=== PATIENT | female | born 1990 | race Caucasian/White ===

== ENCOUNTER 2018-11-01 15:21 | Inpatient (IN) | payer OTHER ==
[2018-11-01 15:33] VITALS: BMI 26.3
--- NOTE | 2018-11-01 16:42 | PDOC ---
History of Present Illness - General Chief Complaint: Lightheaded Stated Complaint: LIGHT HEADED/ WEAKNESS Time Seen by Provider: 11/01/18 16:02 History Source: Patient, Parent(s) Exam Limitations: No Limitations - History of Present Illness Initial Comments: 11/01/18 16:28 Source: Patient and mother HPI: 28yo woman with scoliosis and multiple presentations for neuro symptoms ( 2011, 2014) presenting with new "painful numbess" and weak heaviness on the left side of her body since noon. She reports baseline headache, light headedness, inability to focus, and pain since a 2015 concussion. She also endorses anxiety and correlated palpitations and shortness of breath that resolve spontaneously over time. Denies any head trauma, no headache stronger than normal, no visual disturbances. No recent travel, no fevers / chills / nausea / vomiting / diarrhea / constipation. Endorses mild, non-radiating, non- exertional, gradual on-set, intermittent stabbing quality, chest pain over left chest. Grandmother of a stroke at 80, no coaguloathy in the family, no recent immobilization, no smoking, no estrogen containing -control. Of note , patient has a neuropsych appointment scheduled for 1 week from today. 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 Linda Harper Neuro: none Cards: none Neuropsych: Appointment 1 week NIH Stroke Scale - Last Known Well Date/Time & Onset Date Last Known Well: 11/01/18 Time Last Known Well: 12:00 - Initial Evaluation Level of consciousness: Alert Ask patient the month and their age: Answers both correctly Ask patient to open & close eyes; make fist and let go: Obeys both correctly Best gaze (horizontal eye movement): Normal Visual field testing: No visual field loss Facial paresis (Show teeth/raise eyebrows/close eyes tight): Normal symmetrical movement Motor Function: Left Arm: Normal Motor Function: Right Arm: Normal (extends arm 90 (or 45) degrees for 10 seconds without drift Motor Function: Left Leg: Normal (extends leg 30 degrees for 5 seconds without drift) Motor Function: Right Leg: Normal (extends leg 30 degrees for 5 seconds without drift) Limb Ataxia: No ataxia Sensory(Use pinprick test arms,legs,trunk,face/side to side): Mild to moderate decrease in sensation Best language (Describe picture, name items, read sentences): No Aphasia Dysarthria (read several words): Normal articulation Extinction and Inattention: No abnormality - Total Score NIH Stroke Scale Score: 1 Past History - Travel Traveled outside of the country in the last 30 days: No Close contact w/someone who was outside of country & ill: No - Past Medical History Allergies/Adverse Reactions: Allergies Allergy/AdvReac Type Severity Reaction Status Date / Time No Known Allergies Allergy Verified 11/29/15 00:03 Home Medications: Ambulatory Orders NK [No Known Home Medication] 11/29/15 COPD: No - Immunization History Immunization Up to Date: Yes - Suicide/Smoking/Psychosocial Hx Smoking Status: No Smoking History: Never smoked Have you smoked in the past 12 months: No Number of Cigarettes Smoked Daily: 0 Information on smoking cessation initiated: No Hx Alcohol Use: No Drug/Substance Use Hx: No Substance Use Type: None Review of Systems - Review of Systems Able to Perform ROS?: Yes Is the patient limited Liberian proficient: No Constitutional: No: Chills, Diaphoresis, Fever, Weakness HEENTM: No: Eye Pain, Blurred Vision, Tearing, Recent change in vision Cardiac (ROS): Yes: Chest Pain (see hpi), Palpitations (when anxious). No: Edema, Chest Tightness ABD/GI: No: Abdominal Distended, Abd. Pain w/ defecation, Constipated, Diarrhea , Nausea, Vomiting Musculoskeletal: Yes: Back Pain (receiving PT, scoliosis ) Neurological: Yes: Headache, Numbness, Weakness. No: Paresthesia Psychiatric: Yes: Anxiety All Other Systems: Reviewed and Negative *Physical Exam - Vital Signs Last Vital Signs Temp Pulse Resp BP Pulse Ox 98.7 F 115 H 20 134/81 97 11/01/18 15:27 11/01/18 15:27 11/01/18 15:27 11/01/18 15:27 11/01/18 15:27 - Physical Exam Comments: 11/01/18 17:01 Vitals notable for tachycardia to 115 Gen: wdwn woman, appears stated age, laying in hospital bed HEENT: normocephalic atraumatic, EOMI, normal morphologies, symmetric, normal speech CV: RRR, nl s1/s2m no murmurs rubs or gallops Pulm: CTABL, normal work of breathing, no wheezes / rales / rhonchi, no crackles Abd: soft, nontender, nondistended, no scars or markings Neuro: 5+ foot flexion, leg lift bilaterally, 4+ foot extension on left, sensation "feels less and feels heavy" on the left side throughout, 4+ handgrip on left, 5+ on right, push/pull 5+ bilaterally. Cranial nerves 2-12 intact except for CN5 with reduced sensation in V1-V3 distribution. Walking to the bathroom unassisted at moderate pace, variable limp between walk to and from the bathroom. Pulses: 2 PT and radial Ext: warm and well perfused, no clubbing / caynosis / edema, no rashes or markings ED Treatment Course - LABORATORY CBC & Chemistry Diagram: 11/01/18 16:12 11/01/18 16:13 Medical Decision Making - Medical Decision Making 11/01/18 17:07 28yo woman with scoliosis and multiple presentations for neuro symptoms (2011, 2014, 2015) presenting with new "painful numbess" and weak heaviness on the left side of her body since noon. History notable for prior similar presentations, no recent trauma, NIHSS 1, normal brain MRI 2016. Physical exam with nonfocal neuro exam with subjective sensory deficits both above and below the neck and no objective findings, normal cardiac exam. Concerning for possible intracranial process (unlikely given nonfocal exam) vs. cervical radiculopathy (prior cspine MRI 11/2015 - sensory deficits above and below the neck) vs MS (normal MRI brain in 2016). - CBC, CMP - PT/INR - test - [facility] 11/01/18 17:43 - CBC, CMP, PT wnl - negative - [facility] pending 11/01/18 17:57 Patient without pin cleaner / neurologist. Will refer. - Plan for ECHO to assess for PFO etc. - Should be followed by neurology for ongoing neuro complaints. 11/01/18 18:21 - [facility] without signs of acute bleeds on my read, no masses, shift, or evidence of old infarction. Pending official read. - Exam is fluctuating, strength appears effort related, can get 5/5 strength with distraction. 11/01/18 19:00 - Spoke with Dr. Martin, neurology, decided to admit patient for brain MRI to r/ o CVA - Consider ECHO while inpatient to assess for PFO - EKG ordered *DC/Admit/Observation/Transfer Diagnosis at time of Disposition: Numbness and tingling, Sensory deficit, left - Discharge Dispostion Condition at time of disposition: Stable Decision to Admit order: Yes - Referrals - Patient Instructions - Post Discharge Activity
[2018-11-01 16:44] LABS: INR 0.96 (0.83-1.09); PROTHROMBIN TIME (PATIENT) 11.3 SEC (9.7-13.0)
[2018-11-01 16:45] LABS: BASO % 0.5 % (0-2.0); EOS % 4.6 % (0-4.5); HEMATOCRIT 37.3 % (32.4-45.2); HEMOGLOBIN 12.4 GM/dL (10.7-15.3); LYMPH % 24.8 % (8-40); MCH 29.3 pg (25.7-33.7); MCHC 33.2 g/dl (32.0-36.0); MEAN CELL VOLUME 88.3 fl (80-96); MEAN PLT VOLUME 8.9 fl (7.5-11.1); MONO % 8.2 % (3.8-10.2); NEUT % 61.9 % (42.8-82.8); PLATELET COUNT 313 K/MM3 (134-434); RBC 4.22 M/mm3 (3.60-5.2); RDW 15.1 % (11.6-15.6); WHITE BLOOD COUNT 8.8 K/mm3 (4.0-10.0)
[2018-11-01 16:46] LABS: ALBUMIN 3.5 g/dl (3.4-5.0); BILIRUBIN,TOTAL 0.4 mg/dL (0.2-1); BLOOD UREA NITROGEN 9.8 mg/dL (7-18); CALCIUM 8.8 mg/dL (8.5-10.1); CREATININE 0.9 mg/dL (0.55-1.3); POTASSIUM 4.3 mmol/L (3.5-5.1); TOT PROT 7.6 g/dl (6.4-8.2)
[2018-11-01] MEDS ORDERED: SODIUM CHLORIDE 0.9% 1000 ML INFUS.BAG IV ONE (17:24)
--- NOTE | 2018-11-01 18:55 | PDOC ---
Documentation entered by Virginia Pineda SCRIBE, acting as scribe for Millicent Murdock MD. Millicent Murdock MD: This documentation has been prepared by the scribe, Virginia Pineda SCRIBE, under my direction and personally reviewed by me in its entirety. I confirm that the documentation accurately reflects all work, treatment, procedures, and medical decision making performed by me. Attending Attestation - Resident Resident Name: OswaldSai - ED Attending Attestation I have performed the following: I have examined & evaluated the patient, The case was reviewed & discussed with the resident, I agree w/resident's findings & plan, Exceptions are as noted - HPI HPI: 11/01/18 18:22 The patient is a 28-year-old female, with no past medical history, who presents to the ED with dizziness, lightheadedness, and paresthesia of the LUE. The patient was previously worked up with a brain and c-spine MRI in 2016. She has an upcoming appointment in 1 week with a Neuropsychiatrist. The patient denies any fevers, chills, nausea, vomiting, recent trauma, or OCPs. - Physicial Exam PE: 11/01/18 18:48 awake alert lungs clear bilat heart rrr no mrg abd soft nt nd. ext wwp. no edema. no calf tenderness. nuero CN II - Xii intact however reports subjective decresed sensation to light touch. left side face. arms / legs 5/5. sensation decreased to light touch left arm and leg. speech clear - Medical Decision Making 11/01/18 18:53 28 yo F wit h/o complex nuerological sxs here today c/o left sided numbness, heaviness. pt states started today. has had prior workup of similar sxs including MRI brain and entire spine. is scheduled to see nuerology in few days. on my exam pt with subjective decreased sensation to light tough left side upper and lower ext including face. strength and CN otherwise intact. due to pt complaints will be evaluated with ct head. not a tpa candidate as seems only sensation is affected and pt exam is fluctuating. dW nuerology educational resource coordinator, recommend admission for obs and MRI r/o underlying patholgoy as 2 yrs since last MRI. pt willing to stay admitted to medicine. labs normal. NIH Stroke Scale - Last Known Well Date/Time & Onset Date Last Known Well: 11/01/18 Time Last Known Well: 12:00 - Initial Evaluation Level of consciousness: Alert Ask patient the month and their age: Answers both correctly Ask patient to open & close eyes; make fist and let go: Obeys both correctly Best gaze (horizontal eye movement): Normal Visual field testing: No visual field loss Facial paresis (Show teeth/raise eyebrows/close eyes tight): Normal symmetrical movement Motor Function: Left Arm: Normal Motor Function: Right Arm: Normal (extends arm 90 (or 45) degrees for 10 seconds without drift Motor Function: Left Leg: Normal (extends leg 30 degrees for 5 seconds without drift) Motor Function: Right Leg: Normal (extends leg 30 degrees for 5 seconds without drift) Limb Ataxia: No ataxia Sensory(Use pinprick test arms,legs,trunk,face/side to side): Mild to moderate decrease in sensation (left side) Best language (Describe picture, name items, read sentences): No Aphasia Dysarthria (read several words): Normal articulation Extinction and Inattention: No abnormality - Total Score NIH Stroke Scale Score: 1
--- NOTE | 2018-11-01 21:28 | PN ---
Teaching Attending Note Name of Resident: Makenna Morse ATTENDING PHYSICIAN STATEMENT I saw and evaluated the patient. Chart, data, imaging reviewed. I reviewed the resident's note and discussed the case with the resident. I agree with the resident's findings and plan as documented. SUBJECTIVE: 28 year-old female, with no past medical history, c/o pulsating headache with left facial, upper, lower ext numbness which started this morning associated with some lightheadedness. Said headache was a 8/10 at its max. Pt reports concussion in 2014. 2016 had normal brain mri performed OBJECTIVE: Last Vital Signs Temp Pulse Resp BP Pulse Ox 98.5 F 85 20 129/61 98 11/01/18 18:30 11/01/18 18:30 11/01/18 18:30 11/01/18 18:30 11/01/18 18:30 general -nad, aaox3 heent -atraumatic cv -s1+s2 +rrr chest clear abdomen- soft, nt skin - no rashes neuro-left sided numbness, left sided handgrip Abnormal Lab Results 11/01/18 16:12 Eosinophils % 4.6 H ASSESSMENT AND PLAN: #R/o cva - although doubt given paucity of risk factors. May be complex migraine with neurologic manifestations vs underlying psych d/o with conversion d/o. R/o substance abuse. R/o Multiple sclerosis. -admit to telemetry -neuro checks -naproxen 500mg po prn for headache -mri C+ - check also for MS lesions -echo -carotid u/s doppler -neuro consult -psych consult -f/u head CT report -bed rest dvt ppx- scds
[2018-11-01 21:41] LABS: COCAINE, UR NEGATIVE ng/ml (CUTOFF=300); METHADONE, UR NEGATIVE ng/ml (CUTOFF=300); OPIATES, URI NEGATIVE ng/ml (CUTOFF=300); PHENCYCLIDINE,URINE NEGATIVE ng/ml (CUTOFF=25); URINE AMPHETAMINES NEGATIVE ng/ml (CUTOFF=500); URINE BARBITURATES NEGATIVE ng/ml (CUTOFF=200); URINE BENZODIAZEPINES NEGATIVE ng/ml (CUTOFF=200)
--- NOTE | 2018-11-01 21:42 | HP ---
CHIEF COMPLAINT: Left-sided weakness PCP: Dr. Linda Harper HISTORY OF PRESENT ILLNESS: Pt is a 28 year old female with multiple presentations of neuro symptoms (2011, 2014) presenting with "painful numbness" and weakness on the left side of body. She awoke this morning feeling lightheaded. After several hours, pt began feeling dizzy with a headache and had slow, progressive onset of L-sided numbness and weakness. This prompted her to come to the ED. After arrival, pt complained of palpitations and muscle twitching. She denies any head trauma or visual changes. Pt had a similar episode several weeks ago. Pt denies a history of anxiety. She reports a concussion in 2015. MRI in 2016 was normal. ER course was notable for: (1) CT head: no acute intracranial pathology (2) EKG: NSR Recent Travel: None PAST MEDICAL HISTORY: none PAST SURGICAL HISTORY: none Social History: Smoking: denies Alcohol: occasionally Drugs: denies Family History: Hypothyroidism and HTN in mother Allergies No Known Allergies Allergy (Verified 11/29/15 00:03) HOME MEDICATIONS: Home Medications Medication Instructions Recorded NK [No Known Home Medication] 11/29/15 REVIEW OF SYSTEMS CONSTITUTIONAL: Absent: fever, chills, diaphoresis, generalized weakness, malaise, loss of appetite, weight change HEENT: Absent: rhinorrhea, nasal congestion, throat pain, throat swelling, difficulty swallowing, mouth swelling, ear pain, eye pain, visual changes CARDIOVASCULAR: palpitations Absent: chest pain, syncope, irregular heart rate, lightheadedness, peripheral edema RESPIRATORY: Absent: cough, shortness of breath, dyspnea with exertion, orthopnea, wheezing, stridor, hemoptysis GASTROINTESTINAL: Absent: abdominal pain, abdominal distension, nausea, vomiting, diarrhea, constipation, melena, hematochezia GENITOURINARY: Absent: dysuria, frequency, urgency, hesitancy, hematuria, flank pain, genital pain MUSCULOSKELETAL: Absent: myalgia, arthralgia, joint swelling, back pain, neck pain SKIN: Absent: rash, itching, pallor HEMATOLOGIC/IMMUNOLOGIC: Absent: easy bleeding, easy bruising, lymphadenopathy, frequent infections ENDOCRINE: Absent: unexplained weight gain, unexplained weight loss, heat intolerance, cold intolerance NEUROLOGIC: see above PSYCHIATRIC: see above PHYSICAL EXAMINATION Vital Signs - 24 hr 11/01/18 11/01/18 11/01/18 15:27 15:32 18:30 Temperature 98.7 F 98.5 F Pulse Rate 115 H Pulse Rate [ 91 H 85 Left Apical] Respiratory 20 20 20 Rate Blood Pressure 134/81 Blood Pressure 99/74 129/61 [Right Arm] O2 Sat by Pulse 97 98 98 Oximetry (%) GENERAL: Awake, alert, and fully oriented, in no acute distress. HEAD: Normal with no signs of trauma. EYES: Pupils equal, round and reactive to light, extraocular movements intact, sclera anicteric, conjunctiva clear. No lid lag. EARS, NOSE, THROAT: Ears normal, nares patent, oropharynx clear without exudates. Moist mucous membranes. NECK: Normal range of motion, supple without lymphadenopathy, JVD, or masses. LUNGS: Breath sounds equal, clear to auscultation bilaterally. No wheezes, and no crackles. No accessory muscle use. HEART: Regular rate and rhythm, normal S1 and S2 without murmur, rub or gallop. ABDOMEN: Soft, nontender, not distended, normoactive bowel sounds, no guarding, no rebound, no masses. No hepatomegaly or splenomegaly. MUSCULOSKELETAL: Normal range of motion at all joints. No bony deformities or tenderness. No CVA tenderness. UPPER EXTREMITIES: 2+ pulses, warm, well-perfused. No cyanosis. No clubbing. No peripheral edema. LOWER EXTREMITIES: 2+ pulses, warm, well-perfused. No calf tenderness. No peripheral edema. NEUROLOGICAL: Cranial nerves II-XII intact. Normal speech. Gait with slight limp on left side. 5/5 strength on R side throughout. 4/5 strength on L side throughout. Decreased sensation on the L compared to R on face and upper and lower extremities. PSYCHIATRIC: Cooperative. Good eye contact. Appropriate mood and affect. SKIN: Warm, dry, normal turgor, no rashes or lesions noted, normal capillary refill. Laboratory Results - last 24 hr CBC, BMP 11/01/18 16:12 11/01/18 16:13 ASSESSMENT/PLAN: Pt is a 28 year old female with PMH of multiple neuro visits who presents with left sided weakness. #R/o CVA vs MS Unlikely, given absence of risk factors and normal MRI in 2016 MRI brain,carotid duplex, echo ordered Regular neuro checks Neuro consult #? Complex migraine with neurologic manifestations Neuro consult #? Substance abuse U tox pending #? Psych with conversion Psych consult #Headache Naproxen 500mg prn #FEN Regular diet IVF NS #DVT prophylaxis SCDs #Dispo Monitor on tele Visit type - Emergency Visit Emergency Visit: Yes ED Registration Date: 11/01/18 Care time: The patient presented to the Emergency Department on the above date and was hospitalized for further evaluation of their emergent condition. - New Patient This patient is new to me today: Yes Date on this admission: 11/01/18 - Critical Care Critical Care patient: No ATTENDING PHYSICIAN STATEMENT I saw and evaluated the patient. I reviewed the resident's note and discussed the case with the resident. I agree with the resident's findings and plan as documented. SUBJECTIVE: OBJECTIVE: ASSESSMENT AND PLAN:
[2018-11-01] MEDS ORDERED: NAPROXEN 500 MG TABLET (FP) ONE (23:50)
[2018-11-01] MEDS: NAPROXEN 500 MG TABLET (FP) PO PRN (23:55)
[2018-11-02 07:10] VITALS: TEMP 99.2
[2018-11-02 07:11] LABS: BASO % 0.5 % (0-2.0); EOS % 3.4 % (0-4.5); HEMATOCRIT 35.8 % (32.4-45.2); HEMOGLOBIN 11.8 GM/dL (10.7-15.3); LYMPH % 31.3 % (8-40); MCH 29.3 pg (25.7-33.7); MCHC 32.9 g/dl (32.0-36.0); MEAN PLT VOLUME 8.8 fl (7.5-11.1); MONO % 7.8 % (3.8-10.2); PLATELET COUNT 287 K/MM3 (134-434); RBC 4.02 M/mm3 (3.60-5.2); RDW 14.9 % (11.6-15.6); WHITE BLOOD COUNT 9.7 K/mm3 (4.0-10.0)
[2018-11-02 07:41] LABS: ALBUMIN 3.3 g/dl (3.4-5.0); ALK PHOS 74 U/L (45-117); ANION GAP 9 MMOL/L (8-16); BILIRUBIN,TOTAL 0.9 mg/dL (0.2-1); BLOOD UREA NITROGEN 10.4 mg/dL (7-18); CALCIUM 8.3 mg/dL (8.5-10.1); CHLORIDE 109 mmol/L (98-107); CO2 23 mmol/L (21-32); CREATININE 0.7 mg/dL (0.55-1.3); GLUCOSE,RANDOM 85 mg/dL (74-106); MAGNESIUM 1.9 mg/dL (1.8-2.4); POTASSIUM 3.7 mmol/L (3.5-5.1); SGOT/AST 13 U/L (15-37); SGPT/ALT 21 U/L (13-61); SODIUM 140 mmol/L (136-145); TOT PROT 6.8 g/dl (6.4-8.2)
--- NOTE | 2018-11-02 08:38 | EKG ---
Test Reason : Blood Pressure : / mmHG Vent. Rate : 077 BPM Atrial Rate : 077 BPM P-R Int : 124 ms QRS Dur : 086 ms QT Int : 368 ms P-R-T Axes : 025 048 034 degrees QTc Int : 416 ms NORMAL SINUS RHYTHM NORMAL ECG WHEN COMPARED WITH ECG OF 10-OCT-2010 17:12, ST NO LONGER ELEVATED IN INFERIOR LEADS Confirmed by SOLO YOUNG MD ([id number]) on 11/02/2018 8:38:04 AM Referred By: Confirmed By:SOLO YOUNG MD
[2018-11-02] MEDS ORDERED: ENOXAPARIN NA (PORCINE) 40 MG/0.4 ML DISP.SYRIN SQ SCH (10:00)
[2018-11-02] MEDS: NAPROXEN 500 MG TABLET (FP) PO PRN (11:54)
--- NOTE | 2018-11-02 12:19 | CON.NEURO ---
Consult - History of Present Illness History of Present Illness: 28 year old female with multiple presentations of neuro symptoms (2011, 2014) presenting with "painful numbness" and weakness on the left side of body. She awoke 10/31/18 -felt headache and had slow, progressive onset of L-sided numbness and weakness. This prompted her to come to the ED. After arrival, pt complained of palpitations and muscle twitching. She denies any head trauma or visual changes. Pt had a similar episode several weeks ago. Pt denies a history of anxiety. She reports a concussion in 2014. MRI in 2016 was normal. She states she had a concussion some years ago and has intemittent memory issues and dizziness since then. dad is bedside. she is not working and denies toxic habits. denies PSych HX. B12 NL, TSh NL, TOX (-), preg (-) CT HD (-) - Alcohol/Substance Use Hx Alcohol Use: No - Smoking History Smoking history: Never smoked Have you smoked in the past 12 months: No Aproximately how many cigarettes per day: 0 Home Medications - Allergies Allergies/Adverse Reactions: Allergies Allergy/AdvReac Type Severity Reaction Status Date / Time No Known Allergies Allergy Verified 11/29/15 00:03 - Home Medications Home Medications: Ambulatory Orders NK [No Known Home Medication] 11/29/15 Physical Exam-Neuro Vital Signs: Vital Signs Temperature 99.2 F 11/02/18 07:08 Pulse Rate 74 11/02/18 07:08 Respiratory Rate 18 11/02/18 07:08 Blood Pressure 129/72 11/02/18 07:08 O2 Sat by Pulse Oximetry (%) 99 11/02/18 07:08 Labs: CBC, BMP 11/02/18 06:30 11/02/18 06:30 INR, PTT INR 0.96 (0.83-1.09) 11/01/18 16:13 - Neuro Exam Level Of Consciousness: Yes: Alert (Awake, oriented x 3, EOIMI, VFF, n facial, limited strength LUE and LLE -- ? effort dependent , reflexes WNL; ) Assessment/Plan 28 year old female with multiple presentations of neuro symptoms (2011, 2014) presenting with "painful numbness" and weakness on the left side of body. She awoke 10/31/18 -felt headache and had slow, progressive onset of L-sided numbness and weakness. This prompted her to come to the ED. After arrival, pt complained of palpitations and muscle twitching. She denies any head trauma or visual changes. Pt had a similar episode several weeks ago. Pt denies a history of anxiety. She reports a concussion in 2014. MRI in 2016 was normal. B12 NL, TSh NL, TOX (-), preg (-) CT HD (-) AP : AVENDANO with Left hemisensory/plegia -- migraine with aura vs demeylinating vs conversion MRI BRAIN reviewed-WNL , argues against demyelination consider NSAIDS and medrol dose pack for AVENDANO consider PSYCH eval can FU outpt with NEUROPSYCH for memory issues may need VEEG as outpt as well DR FERNANDEZ
--- NOTE | 2018-11-02 15:28 | EKG ---
Test Reason : Blood Pressure : / mmHG Vent. Rate : 079 BPM Atrial Rate : 079 BPM P-R Int : 142 ms QRS Dur : 080 ms QT Int : 388 ms P-R-T Axes : 049 053 059 degrees QTc Int : 444 ms NORMAL SINUS RHYTHM WITH SINUS ARRHYTHMIA NORMAL ECG WHEN COMPARED WITH ECG OF 01-NOV-2018 19:09, NO SIGNIFICANT CHANGE WAS FOUND Confirmed by HANNAH DAVALOS, SOLO ([id number]) on 11/02/2018 3:27:58 PM Referred By: Confirmed By:SOLO YOUNG MD
--- NOTE | 2018-11-02 15:43 | PN ---
Progress Note (short form) - Note Progress Note: Subjective: complains of L sided weakness and numbness. her AVENDANO is better Objective: Vital Signs: Last Vital Signs Temp Pulse Resp BP Pulse Ox 99.2 F 74 18 129/72 99 11/02/18 07:08 11/02/18 07:08 11/02/18 07:08 11/02/18 07:08 11/02/18 07:08 Physical Exam: NAD Cv : RRR. Lungs: CTAB Ext : no edema or erythema. Abd: obese, soft, NT, ND. Neuro : EOMI, round equal pupils, reactive to light. No facial droop. tongue at mid line. strength : 4/5 in L shoulder shrug, biceps, triceps, hand corner bead operator, hip flexion , knee flexion and extension, and ankle dorsiflexion and plantar flexion 5/5 in R shoulder shrug, biceps, triceps, hand corner bead operator, hip flexion , knee flexion and extension, and ankle dorsiflexion and plantar flexion reflexes : 2+ knee jerk and biceps b/l Assessment/Plan: 28 y/o lady with h/o concussion, and resultant memory loss, who presented with L sided numbness. 1- L sided numbness and weakness. no stroke or MS on MRI . appreciate neuro input : complicated Migraines Vs conversion. - start prednisone x 3 days - ibuprofen as needed - f/u with neuro and with psych - referrals given dc home. plan d/w patient Visit type - Emergency Visit Emergency Visit: Yes ED Registration Date: 11/01/18 Care time: The patient presented to the Emergency Department on the above date and was hospitalized for further evaluation of their emergent condition. - New Patient This patient is new to me today: Yes Date on this admission: 11/02/18 - Critical Care Critical Care patient: No
[2018-11-02 15:58] VITALS: BP 130/84; PULSE 81
[2018-11-02] MEDS ORDERED: predniSONE 10 MG TABLET (UD) PO ONE (16:15)
--- NOTE | 2018-11-03 10:51 | PN ---
Progress Note (short form) - Note Progress Note: 28 year old female with multiple presentations of neuro symptoms (2011, 2014) presenting with "painful numbness" and weakness on the left side of body. She awoke 10/31/18 -felt headache and had slow, progressive onset of L-sided numbness and weakness. This prompted her to come to the ED. After arrival, pt complained of palpitations and muscle twitching. She denies any head trauma or visual changes. Pt had a similar episode several weeks ago. Pt denies a history of anxiety. She reports a concussion in 2014. MRI in 2016 was normal. She states she had a concussion some years ago and has intemittent memory issues and dizziness since then. dad is bedside. she is not working and denies toxic habits. denies PSych HX. B12 NL, TSh NL, TOX (-), preg (-) CT HD (-) FU : MRI BRAIN (-) - Alcohol/Substance Use Hx Alcohol Use: No - Smoking History Smoking history: Never smoked Have you smoked in the past 12 months: No Aproximately how many cigarettes per day: 0 Home Medications - Allergies Allergies/Adverse Reactions: Allergies Allergy/AdvReac Type Severity Reaction Status Date / Time No Known Allergies Allergy Verified 11/29/15 00:03 - Home Medications Home Medications: Ambulatory Orders NK [No Known Home Medication] 11/29/15 Physical Exam-Neuro Vital Signs: Vital Signs Temperature 99.2 F 11/02/18 07:08 Pulse Rate 81 11/02/18 15:35 Respiratory Rate 18 11/02/18 15:35 Blood Pressure 130/84 11/02/18 15:35 O2 Sat by Pulse Oximetry (%) 97 11/02/18 15:35 Labs: CBC, BMP 11/02/18 06:30 11/02/18 06:30 INR, PTT INR 0.96 (0.83-1.09) 11/01/18 16:13 - Neuro Exam Level Of Consciousness: Yes: Alert (Awake, oriented x 3, EOIMI, VFF, n facial, limited strength LUE and LLE -- ? effort dependent , reflexes WNL; ) Assessment/Plan 28 year old female with multiple presentations of neuro symptoms (2011, 2014) presenting with "painful numbness" and weakness on the left side of body. She awoke 10/31/18 -felt headache and had slow, progressive onset of L-sided numbness and weakness. This prompted her to come to the ED. After arrival, pt complained of palpitations and muscle twitching. She denies any head trauma or visual changes. Pt had a similar episode several weeks ago. Pt denies a history of anxiety. She reports a concussion in 2014. MRI in 2016 was normal. B12 NL, TSh NL, TOX (-), preg (-) CT HD (-) AP : AVENDANO with Left hemisensory/plegia -- migraine with aura vs demeylinating vs conversion MRI BRAIN reviewed-WNL , argues against demyelination consider NSAIDS and medrol dose pack for AVENDANO consider PSYCH eval can FU outpt with NEUROPSYCH for memory issues may need VEEG as outpt as well stable for DC DR FERNANDEZ
--- NOTE | 2018-11-04 15:39 | DS ---
Physical Exam: SUBJECTIVE: Patient seen and examined. No acute events overnight. OBJECTIVE: PHYSICAL EXAM GENERAL: Awake, alert, and fully oriented, in no acute distress. HEAD: Normal with no signs of trauma. EYES: Pupils equal, round and reactive to light, extraocular movements intact, sclera anicteric, conjunctiva clear. No lid lag. EARS, NOSE, THROAT: Ears normal, nares patent, oropharynx clear without exudates. Moist mucous membranes. NECK: Normal range of motion, supple without lymphadenopathy, JVD, or masses. LUNGS: Breath sounds equal, clear to auscultation bilaterally. No wheezes, and no crackles. No accessory muscle use. HEART: Regular rate and rhythm, normal S1 and S2 without murmur, rub or gallop. ABDOMEN: Soft, nontender, not distended, normoactive bowel sounds, no guarding, no rebound, no masses. No hepatomegaly or splenomegaly. MUSCULOSKELETAL: Normal range of motion at all joints. No bony deformities or tenderness. No CVA tenderness. UPPER EXTREMITIES: 2+ pulses, warm, well-perfused. No cyanosis. No clubbing. No peripheral edema. LOWER EXTREMITIES: 2+ pulses, warm, well-perfused. No calf tenderness. No peripheral edema. NEUROLOGICAL: Cranial nerves II-XII intact. Normal speech. Gait with slight limp on left side. 5/5 strength on R side throughout. 4/5 strength on L side throughout. Decreased sensation on the L compared to R on face and upper and lower extremities. PSYCHIATRIC: Cooperative. Good eye contact. Appropriate mood and affect. SKIN: Warm, dry, normal turgor, no rashes or lesions noted, normal capillary refill. LABS CBC, BMP 11/02/18 06:30 11/02/18 06:30 HOSPITAL COURSE: Date of Admission:11/01/18 Pt is a 28 year old female with PMHx of concussion and resultant memory loss, who presented with progressive onset of L sided weakness. Upon admission, pt had decreased sensation on L side, but FROM of extremities and 5/5 strength. No focal deficits on CN. Pt received a CT and MRI of brain which were neg for acute pathology (no stroke, MS). Pt has a history of recurrent headaches, and possibility of complex migraines was discussed with pt. She was advised to follow up with neuro and psych for further evaluation and management. Pt has clinically improved. She has no complaints, no focal deficits, and is clinically stable to be discharged. CT Head: no intracranial pathology MRI brain: unremarkable Carotid doppler: unremarkable Date of Discharge: 11/04/18 Minutes to complete discharge: 35 Discharge Summary Reason For Visit: LEFT SIDED SENSORY DEFICIT PRESENT Condition: Improved - Instructions Diet, Activity, Other Instructions: YOu had left sided numbness. but MRI did not show any stroke. YOu might have Migraines or your symptoms might be due to internal stress. - debbie goldberg with from neurology. You [facility] further work up for your condition - please follow with Dr. Cardona form psychiatry - please take prednisone 30 mg daily for 3 days . - take ibuprofen as needed for headache with food - please drink plenty of fluids - come back to ER with any worsening headache, new weakness, fever or chills, or any other symptoms Good luck Referrals: Addison Cardona MD [Staff Physician] - 1 Week Davis Martin DO [Staff Physician] - 2 Weeks Disposition: HOME - Home Medications Comprehensive Discharge Medication List: Ambulatory Orders Ibuprofen 400 mg PO Q8H PRN #20 tablet 11/02/18 predniSONE [Deltasone -] 30 mg PO DAILY #9 tablet 11/02/18 This patient is new to me today: No Emergency Visit: No Critical Care patient: No - Discharge Referral Referred to [facility] Med P.C.: No ATTENDING PHYSICIAN STATEMENT I saw and evaluated the patient. I reviewed the resident's note and discussed the case with the resident. I agree with the resident's findings and plan as documented. SUBJECTIVE: OBJECTIVE: ASSESSMENT AND PLAN:
== END 2018-11-02 15:59 | disposition home or self-care (01) | DRG 54 ==
LOC: JER 15:21 → JERBED 19:09
PROVIDERS: ADMIT Internal Medicine; ATTEND Internal Medicine
DX: G43.109 Migraine with aura, not intractable, without status migrainosus (principal); M41.9 Scoliosis, unspecified; G81.94 Hemiplegia, unspecified affecting left nondominant side
CPT/HCPCS: 36415; 70450-TC; 70553-TC; 80053; 80307; 82550; 82607; 83735; 84100; 84443; 84484; 84703; 85025; 85610; 86593; 93005; 93010; 93880-TC; 99285-25; J7030

== ENCOUNTER 2023-07-15 04:31 | Emergency (ER) | payer OTHER ==
[2023-07-15 04:44] VITALS: BP 119/86; PULSE 116; RESP 19; TEMP 98.1; BMI 49.4
== END 2023-07-15 05:51 | disposition home or self-care (01) ==
LOC: JER 04:31
DX: R05.9 Cough, unspecified (principal); R00.0 Tachycardia, unspecified; R42 Dizziness and giddiness; R63.0 Anorexia; R50.9 Fever, unspecified; J06.9 Acute upper respiratory infection, unspecified; B97.89 Other viral agents as the cause of diseases classified elsewhere; J10.1 Influenza due to other identified influenza virus with other respiratory manifestations; Z20.822 Contact with and (suspected) exposure to COVID-19
CPT/HCPCS: 0241U-QW; 99283-25